=== PATIENT | male | born 1995 | race Caucasian/White ===

== ENCOUNTER 2021-10-20 12:51 | Emergency (ER) | payer OTHER ==
[2021-10-20 12:59] VITALS: TEMP 98.8
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
--- NOTE | 2021-10-20 15:45 | XR ---
EXAMINATION TYPE: XR knee complete LT DATE OF EXAM: 10/20/2021 CLINICAL HISTORY: pain TECHNIQUE: Three views of the left knee are obtained. COMPARISON: None. FINDINGS: There is no acute fracture/dislocation. The tri-compartment joint spaces appear within no rmal limits. The overlying soft tissue appears unremarkable. IMPRESSION: There is no acute fracture or dislocation ICD 10 NO FRACTURE, INITIAL EVALUATION
[2021-10-20 16:11] VITALS: BP 141/93; PULSE 84; RESP 16
== END 2021-10-20 16:11 | disposition home or self-care (01) ==
LOC: EC 12:51
DX: R04.0 Epistaxis (principal); J45.909 Unspecified asthma, uncomplicated; F17.290 Nicotine dependence, other tobacco product, uncomplicated; F12.90 Cannabis use, unspecified, uncomplicated; V49.50XA Passenger injured in collision with unspecified motor vehicles in traffic accident, initial encounter
CPT/HCPCS: 70450; 72125; 99284